=== PATIENT | male | born 2000 | race Caucasian/White ===

== ENCOUNTER 2020-03-24 00:05 | Emergency (ER) | payer BC ==
[~2020-03-24] VITALS: Ht 185.4 cm; Wt 95.5 kg
[2020-03-24 00:19] VITALS: BP 153/100; TEMP 98.7
[2020-03-24] MEDS ORDERED: DOXYCYCLINE 10100 MG PO ×2 (02:10→02:25)
[2020-03-24 02:35] VITALS: PULSE 78
== END 2020-03-24 02:35 | disposition home or self-care (01) ==
LOC: COL.ER 00:05
DX: L03.012 Cellulitis of left finger (principal); Z23 Encounter for immunization

== ENCOUNTER 2020-10-12 16:33 | Emergency (ER) | payer BC ==
[~2020-10-12 16:33] MED LIST: DOXYCYCLINE 10100 MG PO
[2020-10-12 16:44] VITALS: TEMP 98.1
[2020-10-12] MEDS ORDERED: AMOXICILLIN 8751 TAB PO (16:51)
[2020-10-12 17:00] VITALS: BP 153/78; PULSE 82
== END 2020-10-12 17:00 | disposition home or self-care (01) ==
LOC: COL.ER 16:33
DX: S61.032A Puncture wound without foreign body of left thumb without damage to nail, initial encounter (principal); W54.0XXA Bitten by dog, initial encounter